=== PATIENT | female | born 1945 | race Caucasian/White ===

== ENCOUNTER 2016-09-21 06:25 | Inpatient (IN) | payer MEDICARE, BC ==
[~2016-09-21 06:25] MED LIST: Lidocaine 1%/Sod Bicarbonate in NS 8.4% 1 ML Syringe IV PRN; Sodium Chloride 0.9% 10 ML Syringe FLUSH PRN
[2016-09-21] MEDS: Lactated Ringers 1,000 ML IV SCH ×2 (07:50→11:58)
--- NOTE | 2016-09-21 08:12 | PCM.PREANE ---
Preanesthetic Assessment - Anesthesia/Transfusion/Family Hx Anesthesia History: Prior Anesthesia Reaction Family History of Anesthesia Reaction: No Transfusion History: No Prior Transfusion(s) - Review of Systems General: No Symptoms Pulmonary: No Symptoms Cardiovascular: No Symptoms Gastrointestinal: No symptoms Neurological: Numbness (toes) Other: Reports: Easy Bruising - Physical Assessment NPO Status Date: 09/20/16 NPO Status Time: 18:30 Pulse: 84 O2 Sat by Pulse Oximetry: 96 Respiratory Rate: 16 Blood Pressure: 135/77 Temperature: 2.6 C Vital Signs: Last Vital Signs Temp 36.7 C 09/21/16 07:10 Pulse 84 09/21/16 07:10 Resp 16 09/21/16 07:10 BP 135/77 09/21/16 07:10 Pulse Ox 96 09/21/16 07:10 Height: 1.6 m Weight: 59.874 kg ASA Class: 3 Mental Status: Alert & Oriented x3 Airway Class: Mallampati = 1 Dentition: Reports: Normal Dentition, [place](s) Thyro-Mental Finger Breadths: 3 Mouth Opening Finger Breadths: 2 ROM/Head Extension: Full Lungs: Clear to auscultation, Normal respiratory effort Cardiovascular: Regular Rate, Regular Rhythm, No Murmurs - Lab Values: Laboratory Last Values MRSA (PCR) Negative 09/04/16 11:19 - Allergies Allergies/Adverse Reactions: Allergies Allergy/AdvReac Type Severity Reaction Status Date / Time guaifenesin AdvReac Nausea Verified 09/21/16 07:19 metronidazole [From Flagyl] AdvReac Nausea Verified 09/21/16 07:19 pseudoephedrine AdvReac Nausea Verified 09/21/16 07:19 [From Sudafed] - Blood Blood Available: Yes Product(s) Available: PRBC - Anesthesia Plan Pre-Op Medication Ordered: Beta Anthony Beta Anthony: Metoprolol Med Last Dose Date: 09/20/16 Med Last Dose Time: 16:30 - Acknowledgements Anesthesia Type Planned: Spinal Pt an Appropriate Candidate for the Planned Anesthesia: Yes Alternatives and Risks of Anesthesia Discussed w Pt/Guardian: Yes Pt/Guardian Understands and Agrees with Anesthesia Plan: Yes PreAnesthesia Questionnaire HEENT History: Reports: Allergic Rhinitis, Cataract, Impaired Vision, Sinusitis Other HEENT History: hypertrophy of nasal turbinates, acute abcess of maxillary sinus Cardiovascular History: Reports: High Cholesterol, Hypertension Respiratory History: Reports: Other (See Below) Other Respiratory History: cough Gastrointestinal History: Reports: GERD, Other (See Below) Other Gastrointestinal History: malignant neoplasm of colon Genitourinary History: Reports: None 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: Musculoskeletal History: Reports: Back Pain, Chronic, Osteoarthritis, Other ( See Below) Other Musculoskeletal History: osteopenia, L hip and shoulder pain Neurological History: Reports: CVA Psychiatric History: Reports: None Endocrine/Metabolic History: Reports: None Hematologic History: Reports: None Immunologic History: Reports: None Oncologic (Cancer) History: Reports: None Dermatologic History: Reports: Seborrheic Dermatitis - Past Surgical History Head Surgeries/Procedures: Reports: None HEENT Surgical History: Reports: Cataract Surgery GI Surgical History: Reports: Colonoscopy Female Surgical History: Reports: None Male Surgical History: Reports: None Endocrine Surgical History: Reports: None Oncologic Surgical History: Reports: None Dermatological Surgical History: Reports: None - SUBSTANCE USE Smoking Status *Q: Never Smoker Second Hand Smoke Exposure: No Recreational Drug Use History: No - HOME MEDS Home Medications: Home Meds Acetaminophen [Tylenol] 325 mg PO Q6H 09/18/16 [History] Beta-Carotene(A) w/C & E/Min [Prosight] 1 tab PO DAILY 09/18/16 [History] Brimonidine Tartrate [Alphagan P 0.1% Ophth Soln] 1 drop EYEBOTH BID 09/18/16 [ History] Calcium Carbonate/Vitamin D3 [Os-Darnell 500+D] 1 tab PO BID 09/18/16 [History] Cholecalciferol (Vitamin D3) [Vitamin D3] 1,000 unit PO DAILY 09/18/16 [History] Fish Oil/[place]-3 Fatty Acids [Fish Oil 1,000 MG] 1,000 mg PO DAILY 09/18/16 [ History] Glucosamine [Glucosamine Sulfate] 500 mg PO DAILY 09/18/16 [History] L.acidoph,Paracasei, B.lactis [Probiotic] 1 tab PO DAILY 09/18/16 [History] Latanoprost [Latanoprost] 1 drop EYEBOTH BEDTIME 09/18/16 [History] Meloxicam [Meloxicam] 15 mg PO DAILY 09/18/16 [History] Metoprolol Succinate [Toprol XL] 25 mg PO DAILY 09/18/16 [History] Mometasone Furoate [Elocon] 1 applic TOP DAILY PRN 09/18/16 [History] amLODIPine [Norvasc] 5 mg PO DAILY 09/18/16 [History] - CURRENT (IN HOUSE) MEDS Current Meds: Current Medications Aspirin (Ecotrin) 325 mg PO BID [facility] Bisacodyl (Dulcolax) 5 mg PO DAILY PRN PRN Reason: Constipation Morphine Sulfate 8 mg/Epinephrine HCl 0.3 mg/Cefuroxime Sodium 750 mg/Ketorolac Tromethamine 30 mg/Sodium Chloride 27.9 ml 0 mg .XX ONETIME ONE Stop: 09/21/16 09:01 Docusate Sodium (Colace) 100 mg PO BID [facility] Famotidine (Pepcid) 20 mg PO BID [facility] Lactated Ringer's (Ringers, Lactated) 1,000 mls @ 125 mls/hr IV ASDIRECTED [place] Stop: 09/21/16 23:00 Cefazolin Sodium/Dextrose 2 gm (/ Premix) 50 mls @ 100 mls/hr IV Q8H [facility] Stop: 09/22/16 09:29 Lidocaine/Sodium Bicarbonate (Buffered Lidocaine 1% In Ns 8.4%) 0.25 ml IV ONETIME PRN PRN Reason: Prior to IV Start Stop: 09/21/16 12:00 Magnesium Hydroxide (Milk Of Magnesia) 30 ml PO BID PRN PRN Reason: Constipation Morphine Sulfate (Morphine) 2 mg IVPUSH Q2H PRN PRN Reason: Breakthrough Pain Multivitamins (Thera) 1 each PO WITHBREAKFAST [facility] Naloxone HCl (Narcan) 0.1 mg IVPUSH Q5M PRN PRN Reason: Oversedation Stop: 09/21/16 11:16 Ondansetron HCl (Zofran) 4 mg IVPUSH Q6H PRN PRN Reason: Nausea/Vomiting Oxycodone/Acetaminophen (Percocet 325-5 Mg) 1 - 2 tab PO Q4H PRN PRN Reason: Pain Senna (Senna) 8.6 mg PO BID PRN PRN Reason: Constipation Sodium Chloride (Saline Flush) 10 ml FLUSH ASDIRECTED PRN PRN Reason: Keep Vein Open Stop: 09/21/16 12:00
[2016-09-21] MEDS ORDERED: Lidocaine 1% 4 ML ONE (08:36)
[2016-09-21] MEDS ORDERED: ceFAZolin 1 GM Vial ONE (08:36)
[2016-09-21] MEDS ORDERED: fentaNYL 100 MCG/2 ML SDV ONE (08:36)
[2016-09-21] MEDS ORDERED: Propofol 200 MG/20 ML SDV ONE ×4 (08:36→10:52)
[2016-09-21] MEDS ORDERED: Morphine PF 10 MG/10 ML SDV ONE (08:41)
[2016-09-21] MEDS: ceFAZolin 1 GM Vial ONE ×2 (09:48→10:35)
[2016-09-21] MEDS: Bupivacaine 0.25% 30 ML SDV ONE ×2 (09:48→10:40)
[2016-09-21] MEDS: Morphine 8 MG, EPINEPHrine 0.3 MG, Cefuroxime 750 MG, Ketorolac 30 MG, Sodium Chloride ... ONE ×10 (09:49→10:39)
[2016-09-21] MEDS: Iodine/Sodium Iodide 2% Tincture 30 ML Bottle ONE ×2 (09:49→10:33)
[2016-09-21] MEDS ORDERED: ePHEDrine/Normal Saline 25 MG/5 ML Syringe ONE (09:58)
[2016-09-21] MEDS ORDERED: Sennosides 8.6 MG Tab PO PRN (11:00)
[2016-09-21] MEDS ORDERED: Naloxone 0.4 MG/ML SDV IVPUSH PRN (11:00)
[2016-09-21] MEDS ORDERED: Bisacodyl 5 MG Tab PO PRN (11:00)
[2016-09-21] MEDS ORDERED: Morphine 2 MG/ML Syringe IVPUSH PRN (11:00)
[2016-09-21] MEDS ORDERED: Magnesium Hydroxide 400 MG/5 ML Susp 30 ML Cup PO PRN (11:00)
[2016-09-21] MEDS ORDERED: diphenhydrAMINE 50 MG/ML SDV IVPUSH PRN (11:18)
[2016-09-21] MEDS ORDERED: fentaNYL 100 MCG/2 ML SDV IVPUSH PRN (11:18)
--- NOTE | 2016-09-21 11:20 | PCM.POSTAN ---
POST ANESTHESIA ASSESSMENT - MENTAL STATUS Mental Status: alert, oriented - VITAL SIGNS Pulse Rate: 82 SaO2: 99 Resp Rate: 15 Blood Pressure: 99/64 Temperature: 36.1 C - RESPIRATORY Respiratory Status: respiratory rate WNL, airway patent, O2 saturation stable - CARDIOVASCULAR CV Status: pulse rate WNL, blood pressure stable - GASTROINTESTINAL GI Status: no symptoms - PAIN Pain Score: 0 - POST OP HYDRATION Hydration Status: adequate & stable - OBSERVATIONS Free Text/Narrative:: no anesthesia complications noted
--- NOTE | 2016-09-21 12:35 | CR ---
Pelvis and left hip: AP view of the pelvis was obtained as well as lateral view of the left hip. Recently placed left hip prosthesis is seen. Components are aligned. Soft tissue air is noted from the surgical procedure. Moderate joint space narrowing is seen within the right hip. Bony structures are osteopenic. Impression: 1. Satisfactory appearance of recently placed left hip prosthesis. 2. Other incidental notes. Diagnostic code #2
--- NOTE | 2016-09-21 12:36 | PCM.CONS ---
H&P History of Present Illness - General Date of Service: 09/21/16 Admit Problem/Dx: Admission Diagnosis/Problem Admission Diagnosis/Problem Osteoarthritis of hip Source of Information: Patient, Other (OR and anesthesia records) History Limitations: Reports: No Limitations - History of Present Illness Initial Comments - Free Text/Narative: Ihsan is a pleasant 71yo female s/p Lt FREDRICK with Dr. Brooks this morning. Doing well thus far, pain under control thus far, spinal still in effect. She is quite nauseous now. Nursing has just given her zofran IVP. PMH significant for HTN, HLD, OA, Osteopenia, allertic rhinitis/sinusitis, GERD , Hx colon Ca, Hx CVA. Hospitalist service is consulted for postoperative medical management. She is Full Code status. Left Hip Pain Score (Numeric/FACES): 7 - Related Data Allergies/Adverse Reactions: Allergies Allergy/AdvReac Type Severity Reaction Status Date / Time guaifenesin AdvReac Nausea Verified 09/21/16 07:19 metronidazole [From Flagyl] AdvReac Nausea Verified 09/21/16 07:19 pseudoephedrine AdvReac Nausea Verified 09/21/16 07:19 [From Sudafed] Home Medications: Home Meds Acetaminophen [Tylenol] 325 mg PO Q6H PRN 09/18/16 [History] Beta-Carotene(A) w/C & E/Min [Prosight] 1 tab PO DAILY 09/18/16 [History] Brimonidine Tartrate [Alphagan P 0.1% Ophth Soln] 1 drop EYEBOTH BID 09/18/16 [ History] Calcium Carbonate/Vitamin D3 [Os-Darnell 500+D] 1 tab PO BID 09/18/16 [History] Cholecalciferol (Vitamin D3) [Vitamin D3] 1,000 unit PO DAILY 09/18/16 [History] Fish Oil/[place]-3 Fatty Acids [Fish Oil 1,000 MG] 1,000 mg PO DAILY 09/18/16 [ History] Glucosamine [Glucosamine Sulfate] 500 mg PO DAILY 09/18/16 [History] L.acidoph,Paracasei, B.lactis [Probiotic] 1 tab PO DAILY 09/18/16 [History] Latanoprost [Latanoprost] 1 drop EYEBOTH BEDTIME 09/18/16 [History] Meloxicam [Meloxicam] 15 mg PO DAILY 09/18/16 [History] Metoprolol Succinate [Toprol XL] 25 mg PO DAILY 09/18/16 [History] Mometasone Furoate [Elocon] 1 applic TOP DAILY PRN 09/18/16 [History] amLODIPine [Norvasc] 5 mg PO DAILY 09/18/16 [History] Past Medical History HEENT History: Reports: Allergic Rhinitis, Cataract, Impaired Vision, Sinusitis Other HEENT History: hypertrophy of nasal turbinates, acute abcess of maxillary sinus Cardiovascular History: Reports: High Cholesterol, Hypertension Respiratory History: Reports: Other (See Below) Other Respiratory History: cough Gastrointestinal History: Reports: GERD, Other (See Below) Other Gastrointestinal History: malignant neoplasm of colon Genitourinary History: Reports: 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: Musculoskeletal History: Reports: Back Pain, Chronic, Osteoarthritis, Other ( See Below) Other Musculoskeletal History: osteopenia, L hip and shoulder pain Neurological History: Reports: CVA Psychiatric History: Reports: None Endocrine/Metabolic History: Reports: None Hematologic History: Reports: None Immunologic History: Reports: None Oncologic (Cancer) History: Reports: None Dermatologic History: Reports: Seborrheic Dermatitis - Infectious Disease History Infectious Disease History: Reports: None - Past Surgical History Head Surgeries/Procedures: Reports: None HEENT Surgical History: Reports: Cataract Surgery GI Surgical History: Reports: Colonoscopy Female Surgical History: Reports: None Male Surgical History: Reports: None Endocrine Surgical History: Reports: None Oncologic Surgical History: Reports: None Dermatological Surgical History: Reports: None Social & Family History - Tobacco Use Smoking Status *Q: Never Smoker Second Hand Smoke Exposure: No - Caffeine Use Caffeine Use: Reports: Coffee - Recreational Drug Use Recreational Drug Use: No H&P Review of Systems - Review of Systems: Review Of Systems: See Below General: Reports: No Symptoms HEENT: Reports: No Symptoms Pulmonary: Reports: No Symptoms. Denies: Shortness of Breath, Pleuritic Chest Pain, Cough Cardiovascular: Reports: No Symptoms. Denies: Chest Pain, Palpitations Gastrointestinal: Reports: No Symptoms Genitourinary: Reports: No Symptoms, Other (grijalva cath) Musculoskeletal: Reports: Leg Pain (minimal at this time) Psychiatric: Reports: No Symptoms Neurological: Reports: No Symptoms Exam - Exam Exam: See Below - Vital Signs Vital Signs: Last Vital Signs Temp 97.3 F 09/21/16 12:00 Pulse 65 09/21/16 12:00 Resp 13 09/21/16 12:00 BP 109/63 09/21/16 12:00 Pulse Ox 98 09/21/16 12:00 Weight: 132 lb - Exam Quality Assessment: Supplemental Oxygen, Urinary Catheter General: Alert, Oriented, Cooperative HEENT: Conjunctiva Clear, EACs Clear, EOMI, Mucosa Moist & [place], Pupils Equal, Pupils Reactive Neck: Supple, Trachea Midline Lungs: Clear to Auscultation, Normal Respiratory Effort, Decreased Breath Sounds (bases) Cardiovascular: Regular Rate, Regular Rhythm Abdomen: Normal Bowel Sounds, Soft (Female) Exam: Deferred Rectal (Female) Exam: Deferred Back Exam: Normal Inspection Extremities: Other (lt hip dressing CDI; hip abductor pillow in place) Peripheral Pulses: 2+: Dorsalis Pedis (L), Dorsalis Pedis (R) Skin: Warm, Dry, Intact Neurological: Cranial Nerves Intact Neuro Extensive - Mental Status: Alert, Oriented x3, Normal Mood/Affect, Normal Cognition, Memory Intact Neuro Extensive - Motor, Sensory, Reflexes: CN II-XII Intact Psychiatric: Alert, Normal Affect, Normal Mood - Patient Data Lab Results Last 24 hrs: Laboratory Results - last 24 hr 09/21/16 Range/Units 07:32 Blood Type B POSITIVE Gel Antibody Screen Negative Consult PN Assessment/Plan POD#: 0 Procedures: Procedures DXA BONE DENSITY AXIAL (07/23/16) (1) S/P total hip arthroplasty SNOMED Code(s): 531363016724, 391604008064 Code(s): Z96.649 - PRESENCE OF UNSPECIFIED ARTIFICIAL HIP JOINT Priority: High Current Visit: Yes Qualifiers: Laterality: left Qualified Code(s): Z96.642 - Presence of left artificial hip joint (2) Osteoarthritis SNOMED Code(s): 828602896 Code(s): M19.90 - UNSPECIFIED OSTEOARTHRITIS, UNSPECIFIED SITE Priority: High Current Visit: Yes Qualifiers: Osteoarthritis location: hip Osteoarthritis type: primary Laterality: left Qualified Code(s): M16.12 - Unilateral primary osteoarthritis, left hip (3) HTN (hypertension) SNOMED Code(s): 69280108 Code(s): I10 - ESSENTIAL (PRIMARY) HYPERTENSION Priority: High Current Visit: No Qualifiers: Hypertension type: essential hypertension Qualified Code(s): I10 - Essential (primary) hypertension (4) HLD (hyperlipidemia) SNOMED Code(s): 27824394 Code(s): E78.5 - HYPERLIPIDEMIA, UNSPECIFIED Priority: High Current Visit : No Qualifiers: Hyperlipidemia type: unspecified Qualified Code(s): E78.5 - Hyperlipidemia , unspecified (5) GERD (gastroesophageal reflux disease) SNOMED Code(s): 787711132 Code(s): K21.9 - GASTRO-ESOPHAGEAL REFLUX DISEASE WITHOUT ESOPHAGITIS Priority: High Current Visit: No Qualifiers: Esophagitis presence: esophagitis presence not specified Qualified Code(s) : K21.9 - Gastro-esophageal reflux disease without esophagitis (6) Osteopenia SNOMED Code(s): 036703865 Code(s): M85.80 - OT DISRD OF BONE DENSITY AND STRUCTURE, UNSPECIFIED SITE Priority: Medium Current Visit: No Qualifiers: Laterality: unspecified laterality (7) Allergic rhinitis SNOMED Code(s): 80161422 Code(s): J30.9 - ALLERGIC RHINITIS, UNSPECIFIED Priority: Medium Current Visit: No Qualifiers: Chronicity: unspecified Allergic rhinitis trigger: unspecified Allergic rhinitis seasonality: unspecified seasonality Qualified Code(s): J30.9 - Allergic rhinitis, unspecified (8) History of colon cancer SNOMED Code(s): 467062967 Code(s): Z85.038 - PERSONAL HISTORY OF MALIGNANT NEOPLASM OF LARGE INTESTINE Priority: Medium Current Visit: No (9) History of CVA (cerebrovascular accident) SNOMED Code(s): 458139008 Code(s): Z86.73 - PRSNL HX OF TIA (TIA), AND CEREB INFRC W/O RESID DEFICITS Priority: Medium Current Visit: No Problem List Initiated/Reviewed/Updated: Yes My Orders last 24 hours: My Active Orders 09/21/16 21:00 Brimonidine Tartrate 1 drop EYEBOTH BID Calcium Carbonate/Vitamin D3 1 tab PO BID Latanoprost [Xalatan 0.005% Ophth Soln] DOSE ml EYEBOTH BEDTIME 09/22/16 09:00 Cholecalciferol (Vitamin D3) [Vitamin D3] 1,000 units PO DAILY Fish Oil/[place]-3 Fatty Acids [Fish Oil] 1 gm PO DAILY Glucosamine 500 mg PO DAILY L.acidoph,Paracasei, B.lactis [Probiotic] 1 tab PO DAILY Metoprolol Succinate [Toprol XL] 25 mg PO DAILY amLODIPine [Norvasc] 5 mg PO DAILY Plan: I/P: S/P Rt FREDRICK POD #[address] Brooks -Pain management and DVT prophylax per primary team/Ortho -RT/IS -PT/OT -CM/SW for assist with DC planning -Follow am labs/hgb Postoperative nausea -Zofran PRN as ordered -Will add scopolamine patch -Cont IVF until nausea resolves and able to tolerate PO fluids Chronic: -HTN- continue home medications -HLD -Osteopenia- cont calcium and vit D -GERD- pepcid bid -Hx allergic rhinitis/sinusitis -Hx CVA -Hx Colon CA Other: GI prophylax Patient is Full Code Status Requesting Provider: Dr. Brooks Date Consult Requested: 09/21/16 Reason for Consult: Postoperative medical management Patient History Reviewed: Yes
[2016-09-21] MEDS: Ondansetron 4 MG/2 ML SDV IVPUSH PRN ×2 (12:41→18:19)
[2016-09-21] MEDS ORDERED: Scopolamine 1.5 MG Transdermal Patch TRDERM PRN ×2 (12:51→13:00)
[2016-09-21] MEDS ORDERED: diphenhydrAMINE 50 MG/ML SDV IVPUSH ONE (13:35)
[2016-09-21] MEDS: ceFAZolin 2 GM in Premix Bag 1 BAG IV SCH (16:14)
[2016-09-21] MEDS: amLODIPine 5 MG Tab PO SCH (18:18)
[2016-09-21] MEDS ORDERED: Latanoprost 0.005% Ophth Soln 2.5 ML Bottle EYEBOTH SCH (21:00)
[2016-09-21] MEDS: Brimonidine 0.2% Ophth Soln 5 ML Bottle EYEBOTH SCH (21:26)
[2016-09-21] MEDS: Docusate Sodium 100 MG Cap PO SCH (21:27)
[2016-09-21] MEDS: Calcium Carbonate/Vitamin D3 1500 MG-200 Units Tab PO SCH (21:27)
[2016-09-21] MEDS: Acetaminophen/oxyCODONE 325-5 MG Tab PO PRN (21:27)
[2016-09-21] MEDS: Famotidine 20 MG Tab PO SCH (21:27)
[2016-09-22] MEDS: ceFAZolin 2 GM in Premix Bag 1 BAG IV SCH ×2 (00:09→08:58)
[2016-09-22] MEDS: Acetaminophen/oxyCODONE 325-5 MG Tab PO PRN ×3 (05:12→15:48)
[2016-09-22] MEDS: Multivitamins,Therapeutic Tab PO SCH ×2 (05:12→06:52)
--- NOTE | 2016-09-22 07:59 | PCM.CONSN ---
- General Info Date of Service: 09/22/16 Admission Dx/Problem (Free Text): Admission Diagnosis/Problem Admission Diagnosis/Problem Osteoarthritis of hip Subjective Update: Follow Up Functional Status: Reports: pain controlled, tolerating diet, urinating. Denies : new symptoms - Review of Systems General: Denies: Fever, Weakness, Fatigue, Malaise, Chills HEENT: Reports: no symptoms Pulmonary: Denies: shortness of breath Cardiovascular: Denies: Chest Pain, Palpitations, Dyspnea on Exertion Gastrointestinal: Denies: Abdominal pain, Difficulty swallowing, Nausea, Vomiting Genitourinary: Reports: no symptoms Musculoskeletal: Reports: no symptoms Skin: Denies: cyanosis, bruising, pruritis, rash Neurological: Reports: Difficulty Walking, Gait Disturbance. Denies: Confusion , Pre-Existing Deficit, Weakness Psychiatric: Denies: depression, anxiety, agitation, hallucinations Systems Review Comment:: No acute issues. She feels better. She has no new complaints. Her K is slightly low at 3.3. Her Vitals are fairly stable. - Patient Data Vitals - most recent: Last Vital Signs Temp 36.6 C 09/21/16 19:58 Pulse 72 09/22/16 05:10 Resp 16 09/22/16 00:48 BP 111/51 L 09/22/16 05:10 Pulse Ox 97 09/22/16 05:10 Weight - most recent: 59.92 kg I&O - last 24 hours: Intake & Output 09/21/16 09/22/16 09/22/16 22:59 06:59 14:59 Intake Total 1380 850 Output Total 650 900 Balance 730 -50 Lab Results last 24 hrs: Laboratory Results - last 24 hr 09/21/16 09/22/16 09/22/16 Range/Units 07:32 05:53 05:53 WBC 7.23 (3.98-10.04) K/mm3 RBC 3.59 L (3.98-5.22) M/mm3 Hgb 11.3 (11.2-15.7) gm/L Hct 34.3 (34.1-44.9) % MCV 95.5 H (79.4-94.8) fl MCH 31.5 (25.6-32.2) pg MCHC 32.9 (32.2-35.5) g/dl RDW Std Deviation 43.2 (36.4-46.3) fL Plt Count 238 (182-369) K/mm3 MPV 8.7 L (9.4-12.3) fl Neut % (Auto) 55.7 (34.0-71.1) % Lymph % (Auto) 32.1 (19.3-51.7) % [place] % (Auto) 10.5 (4.7-12.5) % Eos % (Auto) 1.2 (0.7-5.8) Baso % (Auto) 0.4 (0.1-1.2) % Neut # (Auto) 4.02 (1.56-6.13) K/mm3 Lymph # (Auto) 2.32 (1.18-3.74) K/mm3 [place] # (Auto) 0.76 H (0.24-0.36) K/mm3 Eos # (Auto) 0.09 (0.04-0.36) K/mm3 Baso # (Auto) 0.03 (0.01-0.08) K/mm3 Sodium 137 (136-145) mEq/L Potassium 3.3 L (3.5-5.1) mEq/L Chloride 102 (98-107) mEq/L Carbon Dioxide 29 (21-32) mEq/L Anion Gap 9.3 (5-15) BUN 11 (7-18) mg/dL Creatinine 1.0 (0.55-1.02) mg/dL Est Cr Clr Drug Dosing 42.68 mL/min Estimated GFR (MDRD) 55 (>60) mL/min BUN/Creatinine Ratio 11.0 L (14-18) Glucose 108 (83-115) mg/dL Calcium 8.8 (8.5-10.1) mg/dL Total Bilirubin 0.6 (0.2-1.0) mg/dL AST 18 (15-37) U/L ALT 23 (14-59) U/L Alkaline Phosphatase 54 (46-116) U/L Total Protein 5.5 L (6.4-8.2) g/dl Albumin 2.9 L (3.4-5.0) g/dl Globulin 2.6 gm/dL Albumin/Globulin Ratio 1.1 (1-2) Blood Type B POSITIVE Gel Antibody Screen Negative Med Orders - Current: Current Medications Amlodipine Besylate (Norvasc) 5 mg PO DAILY@1700 [facility] Last Admin: 09/21/16 18:18 Dose: 5 mg Aspirin (Ecotrin) 325 mg PO BID [facility] Bisacodyl (Dulcolax) 5 mg PO DAILY PRN PRN Reason: Constipation Brimonidine Tartrate (Alphagan 0.2% Ophth Soln) 0 ml EYEBOTH BID [facility] Last Admin: 09/21/16 21:26 Dose: 1 drop Calcium Carbonate (Calcium Carbonate/Vitamin D 1500 Mg-200 Unit) 1 tab PO BID [facility] Last Admin: 09/21/16 21:27 Dose: 1 tab Cholecalciferol (Vitamin D3) 1,000 units PO DAILY [facility] Docusate Sodium (Colace) 100 mg PO BID [facility] Last Admin: 09/21/16 21:27 Dose: 100 mg Famotidine (Pepcid) 20 mg PO BID [facility] Last Admin: 09/21/16 21:27 Dose: 20 mg Fish Oil (Fish Oil) 1 gm PO DAILY [facility] Cefazolin Sodium/Dextrose 2 gm (/ Premix) 50 mls @ 100 mls/hr IV Q8H [facility] Stop: 09/22/16 09:29 Last Admin: 09/22/16 00:09 Dose: 100 mls/hr Latanoprost (Xalatan 0.005% Ophth Soln) 0 ml EYEBOTH BEDTIME [facility] Last Admin: 09/21/16 21:27 Dose: 1 drop Magnesium Hydroxide (Milk Of Magnesia) 30 ml PO BID PRN PRN Reason: Constipation Metoprolol Succinate (Toprol Xl) 25 mg PO DAILY@1700 [facility] Miscellaneous Information (Remove Patch) 0 ea TRDERM Q72H [facility] Morphine Sulfate (Morphine) 2 mg IVPUSH Q2H PRN PRN Reason: Breakthrough Pain Multivitamins (Thera) 1 each PO WITHBREAKFAST [facility] Last Admin: 09/22/16 06:52 Dose: Not Given Ondansetron HCl (Zofran) 4 mg IVPUSH Q6H PRN PRN Reason: Nausea/Vomiting Last Admin: 09/21/16 18:19 Dose: 4 mg Oxycodone/Acetaminophen (Percocet 325-5 Mg) 1 - 2 tab PO Q4H PRN PRN Reason: Pain Last Admin: 09/22/16 05:12 Dose: 2 tab Glucosamine 500 Mg 0 each PO DAILY [facility] Saccharomyces Boulardii (Florastor) 250 mg PO DAILY [facility] Scopolamine (Transderm-Scop) 1.5 mg TRDERM Q72H PRN PRN Reason: Nausea Last Admin: 09/21/16 12:57 Dose: 1.5 mg Senna (Senna) 8.6 mg PO BID PRN PRN Reason: Constipation Discontinued Medications Amlodipine Besylate (Norvasc) 5 mg PO DAILY [facility] Bupivacaine HCl (Marcaine 0.25%) Confirm Administered Dose 30 ml .ROUTE .STK- MED ONE Stop: 09/21/16 07:55 Last Admin: 09/21/16 10:40 Dose: 30 ml Cefazolin Sodium (Ancef) Confirm Administered Dose 2 gm .ROUTE .STK-MED ONE Stop: 09/21/16 07:55 Last Admin: 09/21/16 10:35 Dose: 2 gm Cefazolin Sodium (Ancef) Confirm Administered Dose 2 gm .ROUTE .STK-MED ONE Stop: 09/21/16 08:37 Morphine Sulfate 8 mg/Epinephrine HCl 0.3 mg/Cefuroxime Sodium 750 mg/Ketorolac Tromethamine 30 mg/Sodium Chloride 27.9 ml 0 mg .XX ONETIME ONE Stop: 09/21/16 09:01 Last Admin: 09/21/16 10:39 Dose: 788.3 mg Diphenhydramine HCl (Benadryl) 25 mg IVPUSH Q6H PRN PRN Reason: Itching Stop: 09/21/16 18:00 Diphenhydramine HCl (Benadryl) 50 mg IVPUSH ONETIME ONE Stop: 09/21/16 13:36 Last Admin: 09/21/16 13:41 Dose: 50 mg Ephedrine Sulfate (Ephedrine In Ns) Confirm Administered Dose 25 mg .ROUTE .STK- MED ONE Stop: 09/21/16 09:59 Fentanyl (Sublimaze) Confirm Administered Dose 100 mcg .ROUTE .STK-MED ONE Stop: 09/21/16 08:37 Fentanyl (Sublimaze) 50 mcg IVPUSH Q5M PRN PRN Reason: PAIN Stop: 09/21/16 18:00 Lactated Ringer's (Ringers, Lactated) 1,000 mls @ 125 mls/hr IV ASDIRECTED [facility] Stop: 09/21/16 23:00 Last Admin: 09/21/16 11:58 Dose: 125 mls/hr Lidocaine HCl (Xylocaine-Mpf 1%) Confirm Administered Dose 4 mls @ as directed .ROUTE .STK-MED ONE Stop: 09/21/16 08:37 Iodine (Iodine 2% Mild Tincture) Confirm Administered Dose 30 ml .ROUTE .STK- MED ONE Stop: 09/21/16 07:55 Last Admin: 09/21/16 10:33 Dose: 30 ml Lidocaine/Sodium Bicarbonate (Buffered Lidocaine 1% In Ns 8.4%) 0.25 ml IV ONETIME PRN PRN Reason: Prior to IV Start Stop: 09/21/16 12:00 Last Admin: 09/21/16 07:49 Dose: 0.25 ml Metoprolol Succinate (Toprol Xl) 25 mg PO DAILY [facility] Morphine Sulfate (Duramorph Pf) Confirm Administered Dose 10 mg .ROUTE .STK-MED ONE Stop: 09/21/16 08:42 Naloxone HCl (Narcan) 0.1 mg IVPUSH Q5M PRN PRN Reason: Oversedation Stop: 09/21/16 11:16 Propofol (Diprivan 20 Ml) Confirm Administered Dose 200 mg .ROUTE .STK-MED ONE Stop: 09/21/16 08:37 Propofol (Diprivan 20 Ml) Confirm Administered Dose 200 mg .ROUTE .STK-MED ONE Stop: 09/21/16 09:34 Propofol (Diprivan 20 Ml) Confirm Administered Dose 200 mg .ROUTE .STK-MED ONE Stop: 09/21/16 10:13 Propofol (Diprivan 20 Ml) Confirm Administered Dose 200 mg .ROUTE .STK-MED ONE Stop: 09/21/16 10:53 Scopolamine (Transderm-Scop) 1.5 mg TRDERM Q72H PRN PRN Reason: Nausea/Vomiting Sodium Chloride (Saline Flush) 10 ml FLUSH ASDIRECTED PRN PRN Reason: Keep Vein Open Stop: 09/21/16 12:00 Tranexamic Acid (Cyklokapron) Confirm Administered Dose 1,000 mg .ROUTE .STK- MED ONE Stop: 09/21/16 07:55 Last Admin: 09/21/16 10:42 Dose: 1,000 mg - Exam Quality Assessment: No: supplemental oxygen General: alert, oriented, cooperative, no acute distress HEENT: Pupils equal, Pupils reactive, EOMI, Mucous membr. moist/pink Neck: supple, trachea midline, no JVD, no thyromegaly Lungs: Clear to auscultation, Normal respiratory effort Cardiovascular: Regular Rate, Regular Rhythm GI/Abdominal Exam: Normal Bowel Sounds, Soft, Non-Tender, No Organomegaly, No Distention, No Mass (Female) Exam: Deferred Back Exam: Normal Inspection, Decreased Range of Motion Extremities: Normal Inspection, Normal Range of Motion, Non-Tender, No Pedal Edema Peripheral Pulses: 2+: Dorsalis Pedis (L), Dorsalis Pedis (R) Skin: warm, dry, intact Wound/Incisions: healing well, dressing dry and intact, no drainage Neurological: no new focal deficit. No: normal gait Psy/Mental Status: alert, normal affect, normal mood Consult PN Assessment/Plan POD#: 1 Procedures: Procedures DXA BONE DENSITY AXIAL (07/23/16) Problem List Initiated/Reviewed/Updated: Yes Plan: I/P: S/P Rt FREDRICK POD #[address] Brooks - Pain management and DVT prophylax per primary team/Ortho - RT/IS - PT/OT - CM/SW for assist with DC planning - Follow am labs/hgb Resolved: Postoperative nausea - Zofran PRN as ordered - Will add scopolamine patch - Cont IVF until nausea resolves and able to tolerate PO fluids Chronic: HTN- continue home medications HLD Osteopenia- cont calcium and vit D GERD- pepcid bid Hx allergic rhinitis/sinusitis Hx CVA Hx Colon CA Other: GI prophylax Patient is Full Code Status From the Hospitalist standpoint, patient is doing relatively well. We have no further recommendations but to continue current treatment. We are signing off her care. Please feel free to re-consult us for any questions or concerns. Again , thank you for allowing us to participate in the management of this patient.
[2016-09-22] MEDS: Docusate Sodium 100 MG Cap PO SCH (08:55)
[2016-09-22] MEDS: Famotidine 20 MG Tab PO SCH (08:56)
[2016-09-22] MEDS: Calcium Carbonate/Vitamin D3 1500 MG-200 Units Tab PO SCH (08:57)
[2016-09-22] MEDS ORDERED: Cholecalciferol (Vitamin D3) 1,000 Unit Tab PO SCH (09:00)
[2016-09-22] MEDS ORDERED: amLODIPine 5 MG Tab PO SCH (09:00)
[2016-09-22] MEDS ORDERED: Aspirin 325 MG Tab.EC PO SCH (09:00)
[2016-09-22] MEDS ORDERED: Saccharomyces Boulardii (Probiotic) 250 MG Cap PO SCH (09:00)
[2016-09-22] MEDS ORDERED: Fish Oil/Omega-3 Fatty Acids 1 Gm Cap PO SCH (09:00)
[2016-09-22] MEDS ORDERED: GLUCOSAMINE 500 MG PO SCH (09:00)
[2016-09-22] MEDS ORDERED: Metoprolol Succinate 25 MG Tab.ER PO SCH ×2 (09:00→17:00)
[2016-09-22] MEDS: Brimonidine 0.2% Ophth Soln 5 ML Bottle EYEBOTH SCH (09:04)
--- NOTE | 2016-09-22 13:17 | PCM.SURGPN ---
- General Info Date of Service: 09/22/16 POD#: 1 Functional Status: Reports: pain controlled, tolerating diet, ambulating, urinating. Denies: new symptoms - Review of Systems Musculoskeletal: Reports: other (The pt met inpatient therapy goals.) - Patient Data Vitals - most recent: Last Vital Signs Temp 98.6 F 09/22/16 12:00 Pulse 98 09/22/16 12:00 Resp 14 09/22/16 12:00 BP 120/70 09/22/16 12:00 Pulse Ox 98 09/22/16 12:00 Weight - most recent: 132 lb 1.6 oz I&O - last 24 hours: Intake & Output 09/21/16 09/22/16 09/22/16 22:59 06:59 14:59 Intake Total 1380 850 350 Output Total 650 900 Balance 730 -50 350 Lab Results last 24 hrs: Laboratory Results - last 24 hr 09/21/16 09/22/16 09/22/16 Range/Units 07:32 05:53 05:53 WBC 7.23 (3.98-10.04) K/mm3 RBC 3.59 L (3.98-5.22) M/mm3 Hgb 11.3 (11.2-15.7) gm/L Hct 34.3 (34.1-44.9) % MCV 95.5 H (79.4-94.8) fl MCH 31.5 (25.6-32.2) pg MCHC 32.9 (32.2-35.5) g/dl RDW Std Deviation 43.2 (36.4-46.3) fL Plt Count 238 (182-369) K/mm3 MPV 8.7 L (9.4-12.3) fl Neut % (Auto) 55.7 (34.0-71.1) % Lymph % (Auto) 32.1 (19.3-51.7) % [place] % (Auto) 10.5 (4.7-12.5) % Eos % (Auto) 1.2 (0.7-5.8) Baso % (Auto) 0.4 (0.1-1.2) % Neut # (Auto) 4.02 (1.56-6.13) K/mm3 Lymph # (Auto) 2.32 (1.18-3.74) K/mm3 [place] # (Auto) 0.76 H (0.24-0.36) K/mm3 Eos # (Auto) 0.09 (0.04-0.36) K/mm3 Baso # (Auto) 0.03 (0.01-0.08) K/mm3 Sodium 137 (136-145) mEq/L Potassium 3.3 L (3.5-5.1) mEq/L Chloride 102 (98-107) mEq/L Carbon Dioxide 29 (21-32) mEq/L Anion Gap 9.3 (5-15) BUN 11 (7-18) mg/dL Creatinine 1.0 (0.55-1.02) mg/dL Est Cr Clr Drug Dosing 42.68 mL/min Estimated GFR (MDRD) 55 (>60) mL/min BUN/Creatinine Ratio 11.0 L (14-18) Glucose 108 (83-115) mg/dL Calcium 8.8 (8.5-10.1) mg/dL Total Bilirubin 0.6 (0.2-1.0) mg/dL AST 18 (15-37) U/L ALT 23 (14-59) U/L Alkaline Phosphatase 54 (46-116) U/L Total Protein 5.5 L (6.4-8.2) g/dl Albumin 2.9 L (3.4-5.0) g/dl Globulin 2.6 gm/dL Albumin/Globulin Ratio 1.1 (1-2) Blood Type B POSITIVE Gel Antibody Screen Negative Med Orders - Current: Current Medications Amlodipine Besylate (Norvasc) 5 mg PO DAILY@1700 [facility] Last Admin: 09/21/16 18:18 Dose: 5 mg Aspirin (Ecotrin) 325 mg PO BID [facility] Last Admin: 09/22/16 08:57 Dose: 325 mg Bisacodyl (Dulcolax) 5 mg PO DAILY PRN PRN Reason: Constipation Brimonidine Tartrate (Alphagan 0.2% Ophth Soln) 0 ml EYEBOTH BID [facility] Last Admin: 09/22/16 09:04 Dose: 1 drop Calcium Carbonate (Calcium Carbonate/Vitamin D 1500 Mg-200 Unit) 1 tab PO BID [facility] Last Admin: 09/22/16 08:57 Dose: 1 tab Cholecalciferol (Vitamin D3) 1,000 units PO DAILY [facility] Last Admin: 09/22/16 09:05 Dose: 1,000 units Docusate Sodium (Colace) 100 mg PO BID [facility] Last Admin: 09/22/16 08:55 Dose: 100 mg Famotidine (Pepcid) 20 mg PO BID [facility] Last Admin: 09/22/16 08:56 Dose: 20 mg Fish Oil (Fish Oil) 1 gm PO DAILY [facility] Last Admin: 09/22/16 08:56 Dose: 1 gm Latanoprost (Xalatan 0.005% Ophth Soln) 0 ml EYEBOTH BEDTIME [facility] Last Admin: 09/21/16 21:27 Dose: 1 drop Magnesium Hydroxide (Milk Of Magnesia) 30 ml PO BID PRN PRN Reason: Constipation Metoprolol Succinate (Toprol Xl) 25 mg PO DAILY@1700 [facility] Miscellaneous Information (Remove Patch) 0 ea TRDERM Q72H [facility] Morphine Sulfate (Morphine) 2 mg IVPUSH Q2H PRN PRN Reason: Breakthrough Pain Multivitamins (Thera) 1 each PO WITHBREAKFAST [facility] Last Admin: 09/22/16 06:52 Dose: Not Given Ondansetron HCl (Zofran) 4 mg IVPUSH Q6H PRN PRN Reason: Nausea/Vomiting Last Admin: 09/21/16 18:19 Dose: 4 mg Oxycodone/Acetaminophen (Percocet 325-5 Mg) 1 - 2 tab PO Q4H PRN PRN Reason: Pain Last Admin: 09/22/16 11:18 Dose: 1 tab Glucosamine 500 Mg 0 each PO DAILY [facility] Last Admin: 09/22/16 09:05 Dose: Not Given Saccharomyces Boulardii (Florastor) 250 mg PO DAILY [facility] Last Admin: 09/22/16 08:55 Dose: 250 mg Scopolamine (Transderm-Scop) 1.5 mg TRDERM Q72H PRN PRN Reason: Nausea Last Admin: 09/21/16 12:57 Dose: 1.5 mg Senna (Senna) 8.6 mg PO BID PRN PRN Reason: Constipation Discontinued Medications Amlodipine Besylate (Norvasc) 5 mg PO DAILY [facility] Bupivacaine HCl (Marcaine 0.25%) Confirm Administered Dose 30 ml .ROUTE .STK- MED ONE Stop: 09/21/16 07:55 Last Admin: 09/21/16 10:40 Dose: 30 ml Cefazolin Sodium (Ancef) Confirm Administered Dose 2 gm .ROUTE .STK-MED ONE Stop: 09/21/16 07:55 Last Admin: 09/21/16 10:35 Dose: 2 gm Cefazolin Sodium (Ancef) Confirm Administered Dose 2 gm .ROUTE .STK-MED ONE Stop: 09/21/16 08:37 Morphine Sulfate 8 mg/Epinephrine HCl 0.3 mg/Cefuroxime Sodium 750 mg/Ketorolac Tromethamine 30 mg/Sodium Chloride 27.9 ml 0 mg .XX ONETIME ONE Stop: 09/21/16 09:01 Last Admin: 09/21/16 10:39 Dose: 788.3 mg Diphenhydramine HCl (Benadryl) 25 mg IVPUSH Q6H PRN PRN Reason: Itching Stop: 09/21/16 18:00 Diphenhydramine HCl (Benadryl) 50 mg IVPUSH ONETIME ONE Stop: 09/21/16 13:36 Last Admin: 09/21/16 13:41 Dose: 50 mg Ephedrine Sulfate (Ephedrine In Ns) Confirm Administered Dose 25 mg .ROUTE .STK- MED ONE Stop: 09/21/16 09:59 Fentanyl (Sublimaze) Confirm Administered Dose 100 mcg .ROUTE .STK-MED ONE Stop: 09/21/16 08:37 Fentanyl (Sublimaze) 50 mcg IVPUSH Q5M PRN PRN Reason: PAIN Stop: 09/21/16 18:00 Lactated Ringer's (Ringers, Lactated) 1,000 mls @ 125 mls/hr IV ASDIRECTED [facility] Stop: 09/21/16 23:00 Last Admin: 09/21/16 11:58 Dose: 125 mls/hr Cefazolin Sodium/Dextrose 2 gm (/ Premix) 50 mls @ 100 mls/hr IV Q8H [facility] Stop: 09/22/16 09:29 Last Admin: 09/22/16 08:58 Dose: 100 mls/hr Lidocaine HCl (Xylocaine-Mpf 1%) Confirm Administered Dose 4 mls @ as directed .ROUTE .STK-MED ONE Stop: 09/21/16 08:37 Iodine (Iodine 2% Mild Tincture) Confirm Administered Dose 30 ml .ROUTE .STK- MED ONE Stop: 09/21/16 07:55 Last Admin: 09/21/16 10:33 Dose: 30 ml Lidocaine/Sodium Bicarbonate (Buffered Lidocaine 1% In Ns 8.4%) 0.25 ml IV ONETIME PRN PRN Reason: Prior to IV Start Stop: 09/21/16 12:00 Last Admin: 09/21/16 07:49 Dose: 0.25 ml Metoprolol Succinate (Toprol Xl) 25 mg PO DAILY [facility] Morphine Sulfate (Duramorph Pf) Confirm Administered Dose 10 mg .ROUTE .STK-MED ONE Stop: 09/21/16 08:42 Naloxone HCl (Narcan) 0.1 mg IVPUSH Q5M PRN PRN Reason: Oversedation Stop: 09/21/16 11:16 Propofol (Diprivan 20 Ml) Confirm Administered Dose 200 mg .ROUTE .STK-MED ONE Stop: 09/21/16 08:37 Propofol (Diprivan 20 Ml) Confirm Administered Dose 200 mg .ROUTE .STK-MED ONE Stop: 09/21/16 09:34 Propofol (Diprivan 20 Ml) Confirm Administered Dose 200 mg .ROUTE .STK-MED ONE Stop: 09/21/16 10:13 Propofol (Diprivan 20 Ml) Confirm Administered Dose 200 mg .ROUTE .STK-MED ONE Stop: 09/21/16 10:53 Scopolamine (Transderm-Scop) 1.5 mg TRDERM Q72H PRN PRN Reason: Nausea/Vomiting Sodium Chloride (Saline Flush) 10 ml FLUSH ASDIRECTED PRN PRN Reason: Keep Vein Open Stop: 09/21/16 12:00 Tranexamic Acid (Cyklokapron) Confirm Administered Dose 1,000 mg .ROUTE .STK- MED ONE Stop: 09/21/16 07:55 Last Admin: 09/21/16 10:42 Dose: 1,000 mg - Exam Wound/Incisions: dressing dry and intact General: alert, cooperative, no acute distress Lungs: Normal respiratory effort Extremities: Other (NVS intact for BLE. Mignon's negative. Left thigh soft.) - Problem List Review Problem List Initiated/Reviewed/Updated: Yes - My Orders Last 24 Hours: Active Orders 24 hr Category Date Time Status Ready for Discharge [RC] PER UNIT ROUTINE Care 09/22/16 13:12 Active Aspirin [Ecotrin] Med 09/22/16 09:00 Active 325 mg PO BID Brimonidine [Alphagan 0.2% Ophth Soln] Med 09/21/16 21:00 Active 0 ml EYEBOTH BID Calcium Carbonate/Vitamin D3 [Calcium Carbonate/Vitamin Med 09/21/16 21:00 Active D 1500 MG-200 Unit] 1 tab PO BID Cholecalciferol (Vitamin D3) [Vitamin D3] Med 09/22/16 09:00 Active 1,000 units PO DAILY Docusate Sodium [Colace] Med 09/21/16 21:00 Active 100 mg PO BID Famotidine [Pepcid] Med 09/21/16 21:00 Active 20 mg PO BID Fish Oil/Crocker-3 Fatty Acids [Fish Oil] Med 09/22/16 09:00 Active 1 gm PO DAILY Latanoprost [Xalatan 0.005% Ophth Soln] Med 09/21/16 21:00 Active 0 ml EYEBOTH BEDTIME Metoprolol Succinate [Toprol XL] Med 09/22/16 17:00 Active 25 mg PO DAILY@1700 Multivitamins,Therapeutic [Thera] Med 09/22/16 07:00 Active 1 each PO WITHBREAKFAST Patient's Own Medication [Ptom] Med 09/22/16 09:00 Active 0 each PO DAILY Remove Patch Med 09/24/16 13:00 Active 0 ea TRDERM Q72H Saccharomyces Boulardii [Florastor] Med 09/22/16 09:00 Active 250 mg PO DAILY Scopolamine [Transderm-Scop] Med 09/21/16 13:00 Active 1.5 mg TRDERM Q72H PRN amLODIPine [Norvasc] Med 09/21/16 17:00 Active 5 mg PO DAILY@1700 Medication Orders Amlodipine Besylate (Norvasc) 5 mg PO DAILY@1700 [facility] Last Admin: 09/21/16 18:18 Dose: 5 mg Aspirin (Ecotrin) 325 mg PO BID [facility] Last Admin: 09/22/16 08:57 Dose: 325 mg Bisacodyl (Dulcolax) 5 mg PO DAILY PRN PRN Reason: Constipation Brimonidine Tartrate (Alphagan 0.2% Ophth Soln) 0 ml EYEBOTH BID [facility] Last Admin: 09/22/16 09:04 Dose: 1 drop Admin: 09/21/16 21:26 Dose: 1 drop Calcium Carbonate (Calcium Carbonate/Vitamin D 1500 Mg-200 Unit) 1 tab PO BID [facility] Last Admin: 09/22/16 08:57 Dose: 1 tab Admin: 09/21/16 21:27 Dose: 1 tab Cholecalciferol (Vitamin D3) 1,000 units PO DAILY [facility] Last Admin: 09/22/16 09:05 Dose: 1,000 units Docusate Sodium (Colace) 100 mg PO BID [facility] Last Admin: 09/22/16 08:55 Dose: 100 mg Admin: 09/21/16 21:27 Dose: 100 mg Famotidine (Pepcid) 20 mg PO BID [facility] Last Admin: 09/22/16 08:56 Dose: 20 mg Admin: 09/21/16 21:27 Dose: 20 mg Fish Oil (Fish Oil) 1 gm PO DAILY [facility] Last Admin: 09/22/16 08:56 Dose: 1 gm Latanoprost (Xalatan 0.005% Ophth Soln) 0 ml EYEBOTH BEDTIME [facility] Last Admin: 09/21/16 21:27 Dose: 1 drop Magnesium Hydroxide (Milk Of Magnesia) 30 ml PO BID PRN PRN Reason: Constipation Metoprolol Succinate (Toprol Xl) 25 mg PO DAILY@1700 [facility] Miscellaneous Information (Remove Patch) 0 ea TRDERM Q72H [facility] Morphine Sulfate (Morphine) 2 mg IVPUSH Q2H PRN PRN Reason: Breakthrough Pain Multivitamins (Thera) 1 each PO WITHBREAKFAST [facility] Last Admin: 09/22/16 06:52 Dose: Not Given Admin: 09/22/16 05:12 Dose: 1 each Ondansetron HCl (Zofran) 4 mg IVPUSH Q6H PRN PRN Reason: Nausea/Vomiting Last Admin: 09/21/16 18:19 Dose: 4 mg Admin: 09/21/16 12:41 Dose: 4 mg Oxycodone/Acetaminophen (Percocet 325-5 Mg) 1 - 2 tab PO Q4H PRN PRN Reason: Pain Last Admin: 09/22/16 11:18 Dose: 1 tab Admin: 09/22/16 05:12 Dose: 2 tab Admin: 09/21/16 21:27 Dose: 2 tab Glucosamine 500 Mg 0 each PO DAILY [facility] Last Admin: 09/22/16 09:05 Dose: Saccharomyces Boulardii (Florastor) 250 mg PO DAILY [facility] Last Admin: 09/22/16 08:55 Dose: 250 mg Scopolamine (Transderm-Scop) 1.5 mg TRDERM Q72H PRN PRN Reason: Nausea Last Admin: 09/21/16 12:57 Dose: 1.5 mg Senna (Senna) 8.6 mg PO BID PRN PRN Reason: Constipation - Assessment Assessment (Free Text/Narrative):: POD# 1 - left FREDRICK - Plan Plan (Free Text/Narrative):: 1. Hgb 11.3 today. 2. Discharge to home today. 3. 325mg ASA BID, frequent mobility, TEDs. 4. FREDRICK precautions. The pt's case was discussed with Dr. Brooks.
[2016-09-22] MEDS ORDERED: Potassium Chloride 20 MEQ Tab.ER PO ONE ×2 (14:35→15:45)
--- NOTE | 2016-09-22 14:43 | PCM48HPAN ---
Post Anesthesia Note - EVALUATION WITHIN 48HRS OF ANESTHETIC Vital Signs in Normal Range: Yes Patient Participated in Evaluation: Yes Respiratory Function Stable: Yes Airway Patent: Yes Cardiovascular Function Stable: Yes Hydration Status Stable: Yes Pain Control Satisfactory: Yes Nausea and Vomiting Control Satisfactory: Yes Mental Status Recovered: Yes
[2016-09-22] MEDS: amLODIPine 5 MG Tab PO SCH (15:59)
[2016-09-22 17:02] VITALS: BP 96/64
--- NOTE | 2016-09-24 07:23 | PCM.DCSUM1 ---
Discharge Summary - Hospital Course Brief History: Ihsan is a 71 yo female who underwent left FREDRICK with Dr. Brooks on 09-21-16. The procedure was completed under spinal anesthesia. The pt tolerated the procedure well and was admitted to the Medical-Surgical unit. The pt participated in P.T. and O.T. and met the in-patient therapy goals. She was allowed to WBAT and used a FWW for mobility. FREDRICK precautions were instructed and followed. A Mepilex dressing was placed at the surgical wound and remained clean and dry. On POD#1, the pt was started on 325mg ASA BID for VTE prophylaxis. SCDs and TEDs were also ordered. On POD#1, the pt's hemoglobin was 11.3. Medial management was provided by the Hospitalist service and the pt's hospital course was uneventful. On POD#1, the pt was deemed appropriate for discharge to home with her family. - Discharge Data Discharge Date: 09/22/16 Discharge Disposition: Home, Self-Care 01 Condition: Good - Patient Summary/Data Consults: Consultations 09/21/16 07:09 Consult to Case Management [CONS] Routine Consult to Physician [CONS] Routine OT Evaluation and Treatment [CONS] Routine 09/21/16 07:12 PT Evaluation and Treatment [CONS] Routine - Patient Instructions Diet: Usual Diet as Tolerated Activity: Apply Ice, As Tolerated, Elevate Extremity, Full Weight Bearing Activity, Other: FREDRICK precautions. Driving: Do Not Drive Showering/Bathing: May Shower Wound/Incision Care: Keep Operative Site/Wound Site Clean and Dry, Do NOT Change Dressing Notify Provider of: Fever, Increased Pain, Swelling and Redness, Drainage, Nausea and/or Vomiting Other/Special Instructions: Please get up and moving around every hour while awake. This helps to prevent blood clots. Please use your walker and have help as needed. Take a 325mg ASPIRIN TWICE DAILY. This also helps to prevent blood clots. The aspirin is being used for blood clot prevention and not for pain management, so please do not miss a dose of the medication. Do the exercises you were taught in the Hospital. Schedule for P.T. Use the pain medication as needed. The medication may cause drowsiness and constipation. Contact your primary care provider for instructions if you are constipated. You may use a stool softener like docusate sodium or Colace 100mg twice daily and/or a laxative like Miralax daily for constipation. Use the ice machine often. Elevate the limb to decrease swelling. Keep the Mepilex dressing in place until follow-up at the Clinic. Notify the Clinic if the dressing is saturated. Wear the GABE hose during the day and you may remove these at night. Eat a diet high in protein as this well help with healing. Schedule an appointment with your primary care provider for 'routine post-op care'. Call the Clinic with questions or concerns - [phone]. - Discharge Plan Prescriptions/Med Rec: Acetaminophen/oxyCODONE [Percocet 325-5 MG] 1 - 2 tab PO Q6H PRN #60 tablet PRN Reason: Pain Aspirin [Ecotrin] 325 mg PO BID #84 tab.ec Cyclobenzaprine [Flexeril] 10 mg PO TID PRN #40 tablet PRN Reason: Muscle Spasm Home Medications: Home Meds Acetaminophen [Tylenol] 325 mg PO Q6H PRN 09/18/16 [History] Beta-Carotene(A) w/C & E/Min [Prosight] 1 tab PO DAILY 09/18/16 [History] Brimonidine Tartrate [Alphagan P 0.1% Ophth Soln] 1 drop EYEBOTH BID 09/18/16 [ History] Calcium Carbonate/Vitamin D3 [Os-Darnell 500+D] 1 tab PO BID 09/18/16 [History] Cholecalciferol (Vitamin D3) [Vitamin D3] 1,000 unit PO DAILY 09/18/16 [History] Glucosamine [Glucosamine Sulfate] 500 mg PO DAILY 09/18/16 [History] L.acidoph,Paracasei, B.lactis [Probiotic] 1 tab PO DAILY 09/18/16 [History] Latanoprost 1 drop EYEBOTH BEDTIME 09/18/16 [History] Metoprolol Succinate [Toprol XL] 25 mg PO DAILY 09/18/16 [History] Mometasone Furoate [Elocon] 1 applic TOP DAILY PRN 09/18/16 [History] amLODIPine [Norvasc] 5 mg PO DAILY 09/18/16 [History] Acetaminophen/oxyCODONE [Percocet 325-5 MG] 1 - 2 tab PO Q6H PRN #60 tablet [Rx] Aspirin [Ecotrin] 325 mg PO BID #84 tab.ec 09/22/16 [Rx] Cyclobenzaprine [Flexeril] 10 mg PO TID PRN #40 tablet 09/22/16 [Rx] Docusate Sodium [Colace] 100 mg PO BID cap 09/22/16 [Rx] Famotidine [Pepcid] 20 mg PO BID tablet 09/22/16 [Rx] Multivitamins,Therapeutic [Thera] 1 each PO WITHBREAKFAST tablet 09/22/16 [Rx] Remove Patch 0 ea TRDERM Q72H each 09/22/16 [Rx] Sennosides [Senna] 8.6 mg PO BID PRN #0 tablet 09/22/16 [Rx] Patient Handouts: Total Hip Replacement, [id number], Hip Rehabilitation After Surgery, Aspirin, ASA oral tablets, Total Hip Replacement, Care After, [id number] Referrals: Jaylene Irizarry PA-C [Physician Delivery Rn] - 09/29/16 10:45 am (Please attend your previously scheduled appointments with Dr. Brooks on September 29 at 10 :45am. The next appointment thereafter is October 06 at 10:45am. ) Kranthi Rowe MD [Primary Care Provider] - (Please schedule a post- surgical follow-up appointment with your primary care doctor, Dr. Rowe, in 1-2 weeks. ) - Patient Data Vitals - Most Recent: Last Vital Signs Temp 99.0 F 09/22/16 16:59 Pulse 92 09/22/16 16:59 Resp 12 09/22/16 16:59 BP 96/64 09/22/16 16:59 Pulse Ox 98 09/22/16 16:59 Weight - Most Recent: 132 lb 1.6 oz Med Orders - Current: Current Medications Discontinued Medications Amlodipine Besylate (Norvasc) 5 mg PO DAILY [facility] Amlodipine Besylate (Norvasc) 5 mg PO DAILY@1700 [facility] Last Admin: 09/22/16 15:59 Dose: 5 mg Aspirin (Ecotrin) 325 mg PO BID [facility] Last Admin: 09/22/16 08:57 Dose: 325 mg Bisacodyl (Dulcolax) 5 mg PO DAILY PRN PRN Reason: Constipation Brimonidine Tartrate (Alphagan 0.2% Ophth Soln) 0 ml EYEBOTH BID [facility] Last Admin: 09/22/16 09:04 Dose: 1 drop Bupivacaine HCl (Marcaine 0.25%) Confirm Administered Dose 30 ml .ROUTE .STK- MED ONE Stop: 09/21/16 07:55 Last Admin: 09/21/16 10:40 Dose: 30 ml Calcium Carbonate (Calcium Carbonate/Vitamin D 1500 Mg-200 Unit) 1 tab PO BID [facility] Last Admin: 09/22/16 08:57 Dose: 1 tab Cefazolin Sodium (Ancef) Confirm Administered Dose 2 gm .ROUTE .STK-MED ONE Stop: 09/21/16 07:55 Last Admin: 09/21/16 10:35 Dose: 2 gm Cefazolin Sodium (Ancef) Confirm Administered Dose 2 gm .ROUTE .STK-MED ONE Stop: 09/21/16 08:37 Cholecalciferol (Vitamin D3) 1,000 units PO DAILY [facility] Last Admin: 09/22/16 09:05 Dose: 1,000 units Morphine Sulfate 8 mg/Epinephrine HCl 0.3 mg/Cefuroxime Sodium 750 mg/Ketorolac Tromethamine 30 mg/Sodium Chloride 27.9 ml 0 mg .XX ONETIME ONE Stop: 09/21/16 09:01 Last Admin: 09/21/16 10:39 Dose: 788.3 mg Diphenhydramine HCl (Benadryl) 25 mg IVPUSH Q6H PRN PRN Reason: Itching Stop: 09/21/16 18:00 Diphenhydramine HCl (Benadryl) 50 mg IVPUSH ONETIME ONE Stop: 09/21/16 13:36 Last Admin: 09/21/16 13:41 Dose: 50 mg Docusate Sodium (Colace) 100 mg PO BID [facility] Last Admin: 09/22/16 08:55 Dose: 100 mg Ephedrine Sulfate (Ephedrine In Ns) Confirm Administered Dose 25 mg .ROUTE .STK- MED ONE Stop: 09/21/16 09:59 Famotidine (Pepcid) 20 mg PO BID [facility] Last Admin: 09/22/16 08:56 Dose: 20 mg Fentanyl (Sublimaze) Confirm Administered Dose 100 mcg .ROUTE .STK-MED ONE Stop: 09/21/16 08:37 Fentanyl (Sublimaze) 50 mcg IVPUSH Q5M PRN PRN Reason: PAIN Stop: 09/21/16 18:00 Fish Oil (Fish Oil) 1 gm PO DAILY [facility] Last Admin: 09/22/16 08:56 Dose: 1 gm Lactated Ringer's (Ringers, Lactated) 1,000 mls @ 125 mls/hr IV ASDIRECTED [facility] Stop: 09/21/16 23:00 Last Admin: 09/21/16 11:58 Dose: 125 mls/hr Cefazolin Sodium/Dextrose 2 gm (/ Premix) 50 mls @ 100 mls/hr IV Q8H [facility] Stop: 09/22/16 09:29 Last Admin: 09/22/16 08:58 Dose: 100 mls/hr Lidocaine HCl (Xylocaine-Mpf 1%) Confirm Administered Dose 4 mls @ as directed .ROUTE .STK-MED ONE Stop: 09/21/16 08:37 Iodine (Iodine 2% Mild Tincture) Confirm Administered Dose 30 ml .ROUTE .STK- MED ONE Stop: 09/21/16 07:55 Last Admin: 09/21/16 10:33 Dose: 30 ml Latanoprost (Xalatan 0.005% Ophth Soln) 0 ml EYEBOTH BEDTIME [facility] Last Admin: 09/21/16 21:27 Dose: 1 drop Lidocaine/Sodium Bicarbonate (Buffered Lidocaine 1% In Ns 8.4%) 0.25 ml IV ONETIME PRN PRN Reason: Prior to IV Start Stop: 09/21/16 12:00 Last Admin: 09/21/16 07:49 Dose: 0.25 ml Magnesium Hydroxide (Milk Of Magnesia) 30 ml PO BID PRN PRN Reason: Constipation Metoprolol Succinate (Toprol Xl) 25 mg PO DAILY [facility] Metoprolol Succinate (Toprol Xl) 25 mg PO DAILY@1700 [facility] Last Admin: 09/22/16 16:00 Dose: 25 mg Miscellaneous Information (Remove Patch) 0 ea TRDERM Q72H [facility] Morphine Sulfate (Morphine) 2 mg IVPUSH Q2H PRN PRN Reason: Breakthrough Pain Morphine Sulfate (Duramorph Pf) Confirm Administered Dose 10 mg .ROUTE .STK-MED ONE Stop: 09/21/16 08:42 Multivitamins (Thera) 1 each PO WITHBREAKFAST [facility] Last Admin: 09/22/16 06:52 Dose: Not Given Naloxone HCl (Narcan) 0.1 mg IVPUSH Q5M PRN PRN Reason: Oversedation Stop: 09/21/16 11:16 Ondansetron HCl (Zofran) 4 mg IVPUSH Q6H PRN PRN Reason: Nausea/Vomiting Last Admin: 09/21/16 18:19 Dose: 4 mg Oxycodone/Acetaminophen (Percocet 325-5 Mg) 1 - 2 tab PO Q4H PRN PRN Reason: Pain Last Admin: 09/22/16 15:48 Dose: 1 tab Glucosamine 500 Mg 0 each PO DAILY [facility] Last Admin: 09/22/16 09:05 Dose: Not Given Potassium Chloride (Klor-Con M20) 40 meq PO ONETIME ONE Stop: 09/22/16 14:36 Last Admin: 09/22/16 15:58 Dose: Not Given Potassium Chloride (Klor-Con M20) 40 meq PO ONETIME ONE Stop: 09/22/16 15:46 Last Admin: 09/22/16 15:56 Dose: 40 meq Propofol (Diprivan 20 Ml) Confirm Administered Dose 200 mg .ROUTE .STK-MED ONE Stop: 09/21/16 08:37 Propofol (Diprivan 20 Ml) Confirm Administered Dose 200 mg .ROUTE .STK-MED ONE Stop: 09/21/16 09:34 Propofol (Diprivan 20 Ml) Confirm Administered Dose 200 mg .ROUTE .STK-MED ONE Stop: 09/21/16 10:13 Propofol (Diprivan 20 Ml) Confirm Administered Dose 200 mg .ROUTE .STK-MED ONE Stop: 09/21/16 10:53 Saccharomyces Boulardii (Florastor) 250 mg PO DAILY [facility] Last Admin: 09/22/16 08:55 Dose: 250 mg Scopolamine (Transderm-Scop) 1.5 mg TRDERM Q72H PRN PRN Reason: Nausea Last Admin: 09/21/16 12:57 Dose: 1.5 mg Scopolamine (Transderm-Scop) 1.5 mg TRDERM Q72H PRN PRN Reason: Nausea/Vomiting Senna (Senna) 8.6 mg PO BID PRN PRN Reason: Constipation Sodium Chloride (Saline Flush) 10 ml FLUSH ASDIRECTED PRN PRN Reason: Keep Vein Open Stop: 09/21/16 12:00 Tranexamic Acid (Cyklokapron) Confirm Administered Dose 1,000 mg .ROUTE .[facility]- MED ONE Stop: 09/21/16 07:55 Last Admin: 09/21/16 10:42 Dose: 1,000 mg *Q Meaningful Use (DIS) - VTE *Q VTE Criteria *Q: - Stroke *Q Stroke Criteria *Q: - AMI *Q AMI Criteria *Q:
--- NOTE | 2016-09-27 21:01 | PCM.OPNOTE ---
- General Post-Op/Procedure Note Date of Surgery/Procedure: 09/21/16 Operative Procedure(s): left total hip arthroplasty Pre Op Diagnosis: left hip osteoarthrosis Post-Op Diagnosis: Same Anesthesia Technique: Local, MAC, Spinal Primary Surgeon: Kevon Brooks Anesthesia Provider: Mendoza Laboy Brazing Machine Setter: Jaylene Irizarry Brazing Machine Setter: Nguyen Fitzgerald EBLeila in mLs: 300 Complications: None Condition: Good
--- NOTE | 2016-09-27 22:12 | OR ---
DATE OF OPERATION: 09/21/2016 SURGEON: Kevon Brooks MD OPERATION PERFORMED: Left total hip arthroplasty. PREOPERATIVE DIAGNOSIS: Left hip osteoarthrosis. POSTOPERATIVE DIAGNOSIS: Left hip osteoarthrosis. ANESTHESIA: Local MAC with spinal. ANESTHESIA PROVIDER: Mendoza Laboy CRNA. ELECTRICAL CONTROLS ENGINEER: Jaylene Irizarry PA-C and Nguyen Fitzgerald LPN. ESTIMATED BLOOD LOSS: 300 mL. COMPLICATIONS: None. CONDITION: Stable. IMPLANTS: 1. [place] size 5 Accolade II stem. 2. [place] size 58 mm Titanium acetabular cup. 3. Pramod size 36 mm 10 degree elevated liner. 4. A 36 mm Biolox ceramic head. DESCRIPTION OF PROCEDURE: The patient was identified in the preop holding area. Proper site was marked and identified by the surgeon. The patient was taken back to the OR where after adequate anesthesia, the patient was placed in a right lateral decubitus position and axillary roll was placed. The pegs were then placed. The patient's gluteal fold was parallel to the floor. All bony prominences were well padded. The left hip was then sterilely prepped and draped in the usual sterile fashion. OR time-out was performed. The patient received 2 g IV Ancef. At this time, an incision was made centered over the greater trochanter. This was taken down to the IT band and gluteal fascia, which was incised along the incisional length. The patient was found to have almost no external rotation. The abductors were identified and protected and takedown of the short external rotators was done with piriformis tendon, all the way down to the level of lesser trochanter along with capsulotomy. The patient did have significant flattening of the femoral head, and it was difficult to dislocate, but we were able to dislocate it. Neck cut guide was then placed. The neck cut was then completed. Anterior and posterior acetabular retractors were then placed. The remaining labrum was removed along with the pulvinar. Starting with a 46 reamer, I was able to ream up to a 57 for a 58 mm cup. At this time, it was found to be in about 45 degrees of abduction along with 10 degrees of anteversion. A solid Tritanium acetabular cup was impacted into place and this position was found to have adequate fixation after the trial was also found to have adequate fixation. A 36 mm 10 degree elevated polyethylene was then impacted into place, size E. Attention was then turned to the femur. A femoral elevator was placed. A box chisel was used out laterally. Starting awl was placed down the canal. Starting with a size 0 broach, I was able to broach up to a size 5 which was found to be rotationally and vertically stable. At this time, a 36 mm head was placed and the hip was relocated. There was found to be adequate mandaeism of leg lengths and the patient's hip was stable throughout for range of motion. Bone hook was used for dislocation of the trial components. At this time, size 5 Accolade II stem was then impacted in place. A 36 mm Biolox head was then impacted into place and the hip was relocated, 1 L dilute Betadine solution was then irrigated through the hip along 3 L pulse lavage irrigation with Ancef. Periarticular injection was then completed. Two #5 Ethibond suture was used for closure of the capsule and short external rotators. A #2 barbed suture was used for closure of the IT band and gluteal fascia, 2-0 Vicryl was used subcutaneously and Prineo was used for the skin. Sterile soft dressing was applied. The patient tolerated the procedure well and sent to PACU in stable condition. ELMER /[id number]
== END 2016-09-22 17:37 | disposition home or self-care (01) | DRG 470 ==
LOC: JD.MS 06:25
PROVIDERS: ADMIT Orthopaedic Surgery; ATTEND Orthopaedic Surgery
PROC: 0SRB019 Replacement of Left Hip Joint with Metal Synthetic Substitute, Cemented, Open Approach (ICD-10-PCS; principal; 2016-09-21)
DX: M16.12 Unilateral primary osteoarthritis, left hip (principal); K21.9 Gastro-esophageal reflux disease without esophagitis; E78.2 Mixed hyperlipidemia; I10 Essential (primary) hypertension; J30.9 Allergic rhinitis, unspecified; M85.80 Other specified disorders of bone density and structure, unspecified site; Z88.1 Allergy status to other antibiotic agents; Z88.8 Allergy status to other drugs, medicaments and biological substances; Z91.040 Latex allergy status; Z86.73 Personal history of transient ischemic attack (TIA), and cerebral infarction without residual deficits; Z85.038 Personal history of other malignant neoplasm of large intestine
CPT/HCPCS: 01214; 36415; 73501-26-LT; 73501-LT; 80053; 85025; 86850; 86900; 86901; 87641; 94762; 97110-GP; 97116-GP; 97162-GP; 97166-GO; 97530-GP; 97535-GO; A9270-GY; C1776; J0171; J0690; J0697; J1200; J1885; J2270; J2405; J2704; J3010; J3490; J7050; J7120

== ENCOUNTER 2019-06-02 05:54 | Emergency (ER) | payer MEDICARE, BC ==
[2019-06-02 06:06] VITALS: BP 158/99; PULSE 79
--- NOTE | 2019-06-02 06:26 | EDM.PDOC ---
<Ignacio Hurt - Last Filed: 06/02/19 06:31> ED HPI GENERAL MEDICAL PROBLEM - General Chief Complaint: Genitourinary Problem Stated Complaint: LEFT SIDE FLANK PAIN THAT RADIATES TO THE FRONT Time Seen by Provider: 06/02/19 06:05 - History of Present Illness INITIAL COMMENTS - FREE TEXT/NARRATIVE: 73-year-old female presents the emergency room with left-sided lower chest pain. This pain started roughly 24 hours ago left lower chest radiates towards the front. At times it radiates towards her shoulder. This is not associated with shortness of breath. She is noticed that she perhaps is voiding more than normal however she does not have any burning or discomfort with this. She is not aware of any fevers or chills. She has not been coughing. She has not had any nausea or vomiting. She does not have any history of heart disease. She never smoked. The patient has had some right calf pain but has not noticed any swelling with this. The patient is in physical therapy for her right hip. Bilateral Flank Pain Score (Numeric/FACES): 6 - Related Data Allergies Allergy/AdvReac Type Severity Reaction Status Date / Time guaifenesin AdvReac Nausea Verified 06/02/19 06:04 metronidazole [From Flagyl] AdvReac Nausea Verified 06/02/19 06:04 pseudoephedrine AdvReac Nausea Verified 06/02/19 06:04 [From Sudafed] Home Meds: Home Meds Acetaminophen [Tylenol] 325 mg PO Q6H PRN 09/18/16 [History] Beta-Carotene(A) w/C & E/Min [Prosight] 1 tab PO DAILY 09/18/16 [History] Brimonidine Tartrate [Alphagan P 0.1% Ophth Soln] 1 drop EYEBOTH BID 09/18/16 [ History] Calcium Carbonate/Vitamin D3 [Os-Darnell 500+D] 1 tab PO BID 09/18/16 [History] Cholecalciferol (Vitamin D3) [Vitamin D3] 1,000 unit PO DAILY 09/18/16 [History] Glucosamine [Glucosamine Sulfate] 500 mg PO DAILY 09/18/16 [History] L.acidoph,Paracasei, B.lactis [Probiotic] 1 tab PO DAILY 09/18/16 [History] Latanoprost 1 drop EYEBOTH BEDTIME 09/18/16 [History] Metoprolol Succinate [Toprol XL] 25 mg PO DAILY 09/18/16 [History] Mometasone Furoate [Elocon] 1 applic TOP DAILY PRN 09/18/16 [History] amLODIPine [Norvasc] 5 mg PO DAILY 09/18/16 [History] Acetaminophen/oxyCODONE [Percocet 325-5 MG] 1 - 2 tab PO Q6H PRN #60 tablet [Rx] Aspirin [Ecotrin] 325 mg PO BID #84 tab.ec 09/22/16 [Rx] Cyclobenzaprine [Flexeril] 10 mg PO TID PRN #40 tablet 09/22/16 [Rx] Docusate Sodium [Colace] 100 mg PO BID cap 09/22/16 [Rx] Famotidine [Pepcid] 20 mg PO BID tablet 09/22/16 [Rx] Multivitamins,Therapeutic [Thera] 1 each PO WITHBREAKFAST tablet 09/22/16 [Rx] Remove Patch 0 ea TRDERM Q72H each 09/22/16 [Rx] Sennosides [Senna] 8.6 mg PO BID PRN #0 tablet 09/22/16 [Rx] Past Medical History HEENT History: Reports: Allergic Rhinitis, Cataract, Impaired Vision, Sinusitis Other HEENT History: hypertrophy of nasal turbinates, acute abcess of maxillary sinus Cardiovascular History: Reports: High Cholesterol, Hypertension Respiratory History: Reports: Other (See Below) Other Respiratory History: cough Gastrointestinal History: Reports: GERD, Other (See Below) Other Gastrointestinal History: malignant neoplasm of colon Genitourinary History: Reports: Pyelonephritis 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: Musculoskeletal History: Reports: Back Pain, Chronic, Osteoarthritis, Other ( See Below) Other Musculoskeletal History: osteopenia, L hip and shoulder pain Neurological History: Reports: CVA Psychiatric History: Reports: None Endocrine/Metabolic History: Reports: None Hematologic History: Reports: None Immunologic History: Reports: None Oncologic (Cancer) History: Reports: None Dermatologic History: Reports: Seborrheic Dermatitis - Infectious Disease History Infectious Disease History: Reports: None - Past Surgical History Head Surgeries/Procedures: Reports: None HEENT Surgical History: Reports: Cataract Surgery GI Surgical History: Reports: Appendectomy, Colonoscopy Endocrine Surgical History: Reports: None Musculoskeletal Surgical History: Reports: Hip Replacement Oncologic Surgical History: Reports: None Dermatological Surgical History: Reports: None Social & Family History - Family History Family Medical History: Noncontributory - Caffeine Use Caffeine Use: Reports: Coffee, Tea Caffeine Use Comment: drinks 3 teas a day ED ROS GENERAL - Review of Systems Review Of Systems: See Below Constitutional: Reports: No Symptoms HEENT: Reports: No Symptoms Respiratory: Reports: No Symptoms, Pleuritic Chest Pain Cardiovascular: Reports: Chest Pain ED EXAM, GI/ABD - Physical Exam Exam: See Below Exam Limited By: No Limitations General Appearance: Alert, No Apparent Distress Head: Atraumatic, Normocephalic Neck: Normal Inspection, Supple, Non-Tender, Full Range of Motion Respiratory/Chest: No Respiratory Distress, Lungs Clear, Normal Breath Sounds Cardiovascular: Regular Rate, Rhythm, No Edema, No Gallop, No JVD, No Murmur GI/Abdominal Exam: Normal Bowel Sounds, Soft, Tender (He has some vague left- sided discomfort not worsened with palpation) Back Exam: Normal Inspection. No: CVA Tenderness (L), CVA Tenderness (R) Extremities: Other (Left calf is tender not significantly more swollen than the left no erythema or warmth appreciated) Neurological: Alert, Oriented, Normal Cognition Skin Exam: Warm, Dry, Normal Color Lymphatic: No Adenopathy EKG INTERPRETATION EKG Date: 06/02/19 Rhythm: Other (Sinus dysrhythmia) Rate (Beats/Min): 79 Clark: Normal P-Wave: Present QRS: Normal ST-T: Normal QT: Normal AL/PQ Interval: Normal Comparison: NA - No Prior EKG EKG Interpretation Comments: Borderline EKG no prior for comparison. Course - Vital Signs Last Recorded V/S: Last Vital Signs Temp 97.5 F 06/02/19 06:04 Pulse 79 06/02/19 06:04 Resp 19 06/02/19 06:04 BP 158/99 H 06/02/19 06:04 Pulse Ox 97 06/02/19 06:04 - Orders/Labs/Meds Orders: Active Orders 24 hr Category Date Time Status Cardiac Monitoring [RC] . DIRECTED Care 06/02/19 06:47 Active EKG Documentation Completion [RC] STAT Care 06/02/19 06:23 Active Labs: Laboratory Tests 06/02/19 06/02/19 06/02/19 Range/Units 06:35 06:35 06:35 WBC 6.93 (3.98-10.04) K/mm3 RBC 4.60 (3.98-5.22) M/mm3 Hgb 14.5 D (11.2-15.7) gm/dl Hct 43.8 (34.1-44.9) % MCV 95.2 H (79.4-94.8) fl MCH 31.5 (25.6-32.2) pg MCHC 33.1 (32.2-35.5) g/dl RDW Std Deviation 43.7 (36.4-46.3) fL Plt Count 274 (182-369) K/mm3 MPV 8.5 L (9.4-12.3) fl Neut % (Auto) 70.9 (34.0-71.1) % Lymph % (Auto) 21.9 (19.3-51.7) % Lamar % (Auto) 5.8 (4.7-12.5) % Eos % (Auto) 0.4 L (0.7-5.8) Baso % (Auto) 0.7 (0.1-1.2) % Neut # (Auto) 4.91 (1.56-6.13) K/mm3 Lymph # (Auto) 1.52 (1.18-3.74) K/mm3 Lamar # (Auto) 0.40 H (0.24-0.36) K/mm3 Eos # (Auto) 0.03 L (0.04-0.36) K/mm3 Baso # (Auto) 0.05 (0.01-0.08) K/mm3 PT 10.9 (9.7-12.0) SECONDS INR 1.00 APTT 26 (22-31) SECONDS D-Dimer, Quantitative (0.19-0.50) mg/L Sodium 139 (136-145) mEq/L Potassium 3.6 (3.5-5.1) mEq/L Chloride 103 (98-107) mEq/L Carbon Dioxide 26 (21-32) mEq/L Anion Gap 13.6 (5-15) BUN 14 (7-18) mg/dL Creatinine 0.8 (0.55-1.02) mg/dL Est Cr Clr Drug Dosing 51.81 mL/min Estimated GFR (MDRD) > 60 (>60) mL/min BUN/Creatinine Ratio 17.5 (14-18) Glucose 113 (83-115) mg/dL Calcium 9.2 (8.5-10.1) mg/dL Total Bilirubin 0.4 (0.2-1.0) mg/dL AST 8 L (15-37) U/L ALT 26 (14-59) U/L Alkaline Phosphatase 82 (46-116) U/L Troponin I < 0.017 (0.00-0.056) ng/mL Total Protein 6.7 (6.4-8.2) g/dl Albumin 3.7 (3.4-5.0) g/dl Globulin 3.0 gm/dL Albumin/Globulin Ratio 1.2 (1-2) Urine Color (Yellow) Urine Appearance (Clear) Urine pH (5.0-8.0) Ur Specific [place] (1.005-1.030) Urine Protein (Negative) Urine Glucose (UA) (Negative) Urine Ketones (Negative) Urine Occult Blood (Negative) Urine Nitrite (Negative) Urine Bilirubin (Negative) Urine Urobilinogen (0.2-1.0) Ur Leukocyte Esterase (Negative) 06/02/19 06/02/19 Range/Units 06:35 07:45 WBC (3.98-10.04) K/mm3 RBC (3.98-5.22) M/mm3 Hgb (11.2-15.7) gm/dl Hct (34.1-44.9) % MCV (79.4-94.8) fl MCH (25.6-32.2) pg MCHC (32.2-35.5) g/dl RDW Std Deviation (36.4-46.3) fL Plt Count (182-369) K/mm3 MPV (9.4-12.3) fl Neut % (Auto) (34.0-71.1) % Lymph % (Auto) (19.3-51.7) % Lamar % (Auto) (4.7-12.5) % Eos % (Auto) (0.7-5.8) Baso % (Auto) (0.1-1.2) % Neut # (Auto) (1.56-6.13) K/mm3 Lymph # (Auto) (1.18-3.74) K/mm3 Lamar # (Auto) (0.24-0.36) K/mm3 Eos # (Auto) (0.04-0.36) K/mm3 Baso # (Auto) (0.01-0.08) K/mm3 PT (9.7-12.0) SECONDS INR APTT (22-31) SECONDS D-Dimer, Quantitative 0.38 (0.19-0.50) mg/L Sodium (136-145) mEq/L Potassium (3.5-5.1) mEq/L Chloride (98-107) mEq/L Carbon Dioxide (21-32) mEq/L Anion Gap (5-15) BUN (7-18) mg/dL Creatinine (0.55-1.02) mg/dL Est Cr Clr Drug Dosing mL/min Estimated GFR (MDRD) (>60) mL/min BUN/Creatinine Ratio (14-18) Glucose (83-115) mg/dL Calcium (8.5-10.1) mg/dL Total Bilirubin (0.2-1.0) mg/dL AST (15-37) U/L ALT (14-59) U/L Alkaline Phosphatase (46-116) U/L Troponin I (0.00-0.056) ng/mL Total Protein (6.4-8.2) g/dl Albumin (3.4-5.0) g/dl Globulin gm/dL Albumin/Globulin Ratio (1-2) Urine Color Yellow (Yellow) Urine Appearance Clear (Clear) Urine pH 7.5 (5.0-8.0) Ur Specific [place] 1.020 (1.005-1.030) Urine Protein Negative (Negative) Urine Glucose (UA) Negative (Negative) Urine Ketones Negative (Negative) Urine Occult Blood Negative (Negative) Urine Nitrite Negative (Negative) Urine Bilirubin Negative (Negative) Urine Urobilinogen 0.2 (0.2-1.0) Ur Leukocyte Esterase Negative (Negative) Departure - Departure Disposition: Home, Self-Care 01 Clinical Impression: Atypical chest pain Back pain Qualifiers: Back pain location: low back pain Back pain laterality: midline Sciatica presence: without sciatica - Discharge Information Instructions: Acute Back Pain, Adult, Nonspecific Chest Pain, Adult Referrals: Kranthi Rowe MD [Primary Care Provider] - Forms: ED Department Discharge Additional Instructions: Continue Tylenol 2-3 times daily as needed. You can also alternate ice and heat as needed. Your heart and lungs have checked out really well this morning here in the ED. May as well keep your appointment with Dr. Landeros so he can be aware that difficulty you are having and help provide further guidance. The labs will print out on your discharge information. Chest x-ray this morning was clear, your EKG did not show acute findings. Your troponin checking for heart attack was negative and your d-dimer checking for blood clot was negative. UA was clear. Return to ED as needed if symptoms worsening in any way. Sepsis Event Note - Evaluation Sepsis Screening Result: No Definite Risk - Focused Exam Vital Signs: Vital Signs Temp Pulse Resp BP Pulse Ox 06/02/19 06:04 97.5 F 79 19 158/99 H 97 Date Exam was Performed: 06/02/19 Time Exam was Performed: 06:31 <Declan Douglas - Last Filed: 06/02/19 09:00> Course - Re-Assessments/Exams Free Text/Narrative Re-Assessment/Exam: 06/02/19 08:58 Have assumed care from Dr. Hurt. I do agree with his history and exam as documented. I have also interviewed and examined patient. Chest x-ray was clear, EKG showed some mild nonspecific changes but troponin was negative. Her d-dimer came back negative white blood count was normal, UA normal. She did already have a clinic appointment at 930 this morning with her regular provider Dr Landeros. Because they do live an hour out of town he does want to keep that appointment and I not going to advise against that. That way at least Dr Landeros be aware of what we have done and help guide her through current symptoms. Low back discomfort does seem to be primarily mechanical. May be coming down with some type of viral illness making her more ill and achy as well. Departure - Departure Time of Disposition: 08:18 Condition: Fair Sepsis Event Note - Focused Exam Date Exam was Performed: 06/02/19 Time Exam was Performed: 08:58
--- NOTE | 2019-06-02 07:17 | CR ---
Chest: Portable view of the chest was obtained. Comparison: No prior chest imaging is available. Heart size appears slightly enlarged. Upper mediastinum is normal. Lungs are clear with no acute parenchymal change. Deformity of the proximal left humerus is seen most likely due to old fracture with secondary degenerative change within the glenohumeral joint. Mild degenerative change is also noted within the shoulder on the right side. Mild scoliosis is seen. Impression: 1. Findings as noted above. 2. Nothing acute is seen. Diagnostic code #2 Study was dictated in MDT
== END 2019-06-02 08:30 | disposition home or self-care (01) ==
LOC: JD.ED 05:54
DX: R07.89 Other chest pain (principal); M54.5 Low back pain; I10 Essential (primary) hypertension; E78.00 Pure hypercholesterolemia, unspecified; K21.9 Gastro-esophageal reflux disease without esophagitis; M19.90 Unspecified osteoarthritis, unspecified site; Z86.73 Personal history of transient ischemic attack (TIA), and cerebral infarction without residual deficits; Z88.8 Allergy status to other drugs, medicaments and biological substances; Z79.899 Other long term (current) drug therapy; Z79.82 Long term (current) use of aspirin
CPT/HCPCS: 36415; 71045; 71045-26; 80053; 81003; 84484; 85025; 85379; 85610; 85730; 93005; 93010; 99283; 99285-25

== ENCOUNTER 2019-08-09 11:48 | Emergency (ER) | payer MEDICARE, BC ==
--- NOTE | 2019-08-09 12:20 | EDM.PDOC ---
ED HPI GENERAL MEDICAL PROBLEM - General Chief Complaint: Neurological Problem Stated Complaint: POSS STROKE-SENT FROM [facility] Time Seen by Provider: 08/09/19 12:17 Source of Information: Reports: Patient History Limitations: Reports: No Limitations - History of Present Illness INITIAL COMMENTS - FREE TEXT/NARRATIVE: 74-year-old female presents to the ED with acute visual field change starting about 9:15 this morning. She developed sudden onset of visual field loss particularly in the peripheral visual field of her right eye. She can see centrally but it is still slightly blurry. She has a history of glaucoma and uses drops in both eyes. Apparently the left eye has usually higher intraocular pressure than the right. There has been no recent changes in her eyedrops. Has headache or nausea. She has no history of atrial fibrillation or irregular heartbeats. History of hypertension which apparently is well controlled. She does take a baby aspirin daily. No previous TIA or CVA. Onset: Today, Sudden Onset Date: 08/09/19 Onset Time: 09:15 Duration: Hour(s):, Constant, Other (0 field has not improved at all in the right eye since onset) Location: Reports: Face (Visual field acute change right eye loss of peripheral vision blurred central vision) Quality: Reports: Other (No eye pain) Severity: Severe Improves with: Reports: None Worsens with: Reports: None Context: Reports: Other (On spontaneous onset.). 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) (None.) - Related Data Allergies Allergy/AdvReac Type Severity Reaction Status Date / Time guaifenesin AdvReac Nausea Verified 06/02/19 06:04 metronidazole [From Flagyl] AdvReac Nausea Verified 06/02/19 06:04 pseudoephedrine AdvReac Nausea Verified 06/02/19 06:04 [From Sudafed] Home Meds: Home Meds Acetaminophen [Tylenol] 325 mg PO Q6H PRN 09/18/16 [History] Beta-Carotene(A) w/C & E/Min [Prosight] 1 tab PO DAILY 09/18/16 [History] Brimonidine Tartrate [Alphagan P 0.1% Ophth Soln] 1 drop EYEBOTH BID 09/18/16 [ History] Calcium Carbonate/Vitamin D3 [Os-Darnell 500+D] 1 tab PO BID 09/18/16 [History] Cholecalciferol (Vitamin D3) [Vitamin D3] 1,000 unit PO DAILY 09/18/16 [History] Glucosamine [Glucosamine Sulfate] 500 mg PO DAILY 09/18/16 [History] L.acidoph,Paracasei, B.lactis [Probiotic] 1 tab PO DAILY 09/18/16 [History] Latanoprost 1 drop EYEBOTH BEDTIME 09/18/16 [History] Metoprolol Succinate [Toprol XL] 25 mg PO DAILY 09/18/16 [History] Mometasone Furoate [Elocon] 1 applic TOP DAILY PRN 09/18/16 [History] amLODIPine [Norvasc] 5 mg PO DAILY 09/18/16 [History] Acetaminophen/oxyCODONE [Percocet 325-5 MG] 1 - 2 tab PO Q6H PRN #60 tablet [Rx] Aspirin [Ecotrin] 325 mg PO BID #84 tab.ec 09/22/16 [Rx] Cyclobenzaprine [Flexeril] 10 mg PO TID PRN #40 tablet 09/22/16 [Rx] Docusate Sodium [Colace] 100 mg PO BID cap 09/22/16 [Rx] Famotidine [Pepcid] 20 mg PO BID tablet 09/22/16 [Rx] Multivitamins,Therapeutic [Thera] 1 each PO WITHBREAKFAST tablet 09/22/16 [Rx] Remove Patch 0 ea TRDERM Q72H each 09/22/16 [Rx] Sennosides [Senna] 8.6 mg PO BID PRN #0 tablet 09/22/16 [Rx] Past Medical History HEENT History: Reports: Allergic Rhinitis, Cataract, Glaucoma (Drops daily for glaucoma), Impaired Vision, Sinusitis Other HEENT History: hypertrophy of nasal turbinates, acute abcess of maxillary sinus Cardiovascular History: Reports: High Cholesterol, Hypertension Respiratory History: Reports: Other (See Below) Other Respiratory History: cough Gastrointestinal History: Reports: GERD, Other (See Below) Other Gastrointestinal History: malignant neoplasm of colon Genitourinary History: Reports: Pyelonephritis 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: Musculoskeletal History: Reports: Back Pain, Chronic, Osteoarthritis, Other ( See Below) Other Musculoskeletal History: osteopenia, L hip and shoulder pain Neurological History: Reports: CVA Psychiatric History: Reports: None Endocrine/Metabolic History: Reports: None Hematologic History: Reports: None Immunologic History: Reports: None Oncologic (Cancer) History: Reports: None Dermatologic History: Reports: Seborrheic Dermatitis - Infectious Disease History Infectious Disease History: Reports: None - Past Surgical History Head Surgeries/Procedures: Reports: None HEENT Surgical History: Reports: Cataract Surgery GI Surgical History: Reports: Appendectomy, Colonoscopy Endocrine Surgical History: Reports: None Musculoskeletal Surgical History: Reports: Hip Replacement Oncologic Surgical History: Reports: None Dermatological Surgical History: Reports: None Social & Family History - Family History Family Medical History: Noncontributory - Caffeine Use Caffeine Use: Reports: Coffee, Tea Caffeine Use Comment: drinks 3 teas a day - Living Situation & Occupation Living situation: Reports: , Alone Occupation: Retired ED ROS GENERAL - Review of Systems Review Of Systems: See Below Constitutional: Denies: Fever, Chills, Malaise, Weakness, Fatigue, Decreased Appetite, Weight Loss HEENT: Reports: Glasses, Other (Acute visual field change right eye at 915 this morning) Respiratory: Reports: No Symptoms. Denies: Shortness of Breath, Cough Cardiovascular: Reports: Blood Pressure Problem (Well-controlled with medication ). Denies: Chest Pain, Lightheadedness, Orthopnea Endocrine: Reports: No Symptoms GI/Abdominal: Reports: No Symptoms : Reports: Frequency, Incontinence Musculoskeletal: Reports: Back Pain (Urge and stress components), Joint Pain ( Some pain knees hips and neck and shoulders at times) Skin: Reports: No Symptoms Neurological: Reports: No Symptoms Psychiatric: Reports: No Symptoms Hematologic/Lymphatic: Reports: No Symptoms Immunologic: Reports: No Symptoms ED EXAM GENERAL W FULL EYE - Physical Exam Exam: See Below Exam Limited By: No Limitations General Appearance: Alert, WD/WN, Anxious, Mild Distress, Other (Course naturally concerned about visual field loss right eye. Temperature is 36.8 heart rate is 79 respiratory is 18 BP 149/81 pulse ox 98% room air .BP came down to 128/82) Eye Exam: Right Eye: Normal Fundi (The arterial supply to the retina appears to be intact. I could not see any dilated veins.), Bilateral Eye: PERRL, Other ( Pupil on the right is 7 mm pupil on the left is 5 mm.) Eyelids: Bilateral: Normal Appearance Conjunctiva & Sclera: Bilateral: Normal Appearance Cornea Exam: Bilateral: Normal Appearance Extraocular Movements: Bilateral: Intact Pupils: Normal Accommodation Pupillary Size: Right: 7 mm, Left: 5 mm Pupillary Reaction: Bilateral: Sluggish Anterior Chamber: Bilateral: Normal Appearance Posterior Chamber: Right: Normal Funduscopic (The retina is of normal color without pallor. There does not appear to be any central arterial occlusion. Questioning venous occlusion as the veins are not obvious. Ultrasound of the orbit reveals no evidence of a retinal detachment.) Course - Vital Signs Last Recorded V/S: Last Vital Signs Temp 35.8 C L 08/09/19 11:58 Pulse 79 08/09/19 11:58 Resp 18 08/09/19 11:58 BP 149/81 H 08/09/19 11:58 Pulse Ox 98 08/09/19 11:58 - Radiology Interpretation Free Text/Narrative:: 74-year-old female presents to the ED with acute visual field change in her right eye since about court after 9 this morning. She complains of diffuse loss of peripheral vision and blurred vision centrally in the right eye. She has glaucoma and is on drops for both eyes. Headache or any other symptoms. She is in sinus rhythm and blood pressure is normal. The pressure it does appear to be mildly elevated in the right eye as compared to the left. Questionable central venous occlusion in this eye. I am going to send her to her product designer Dr. My Calhoun for her opinion. Patient is to travel to Dr. Calhoun's office as soon as she leaves the ED. Departure - Departure Time of Disposition: 12:17 Disposition: Home, Self-Care 01 Condition: Fair Clinical Impression: Vision loss, right eye - Discharge Information *PRESCRIPTION DRUG MONITORING PROGRAM REVIEWED*: Not Applicable *COPY OF PRESCRIPTION DRUG MONITORING REPORT IN PATIENT EMY: Not Applicable Referrals: Kranthi Rowe MD [Primary Care Provider] - Forms: ED Department Discharge Additional Instructions: Evaluation in the emergency room at noon today in regards to sudden onset of peripheral vision loss at about 0915 hrs. this morning. Vision has not returned since that time and you can only see blurred vision in the central visual field. You have a history of glaucoma and used eyedrops to control this. Apparently glaucoma has been under very good control on last checkup. Your blood pressure is under good control at 123/78. Heart rate is sinus and regular. On my examination of your eye with ophthalmoscopy the arterial supply to the eye appears intact. I cannot see the veins very well suggesting central vein occlusion. Retinal scan done by ultrasound reveals no evidence of a retinal detachment. You are to attend Dr. My Calhoun's office as soon as you leave the emergency department. Please call into the office and they will invite you in when they have an opening which will be shortly. Sepsis Event Note - Evaluation Sepsis Screening Result: No Definite Risk - Focused Exam Vital Signs: Vital Signs Temp Pulse Resp BP Pulse Ox 08/09/19 11:58 35.8 C L 79 18 149/81 H 98 Date Exam was Performed: 08/09/19 Time Exam was Performed: 12:20
[2019-08-09 19:28] VITALS: BP 144/83; PULSE 81
== END 2019-08-09 12:47 | disposition home or self-care (01) ==
LOC: JD.ED 11:48
DX: H54.61 Unqualified visual loss, right eye, normal vision left eye (principal); K21.9 Gastro-esophageal reflux disease without esophagitis; I10 Essential (primary) hypertension; Z86.73 Personal history of transient ischemic attack (TIA), and cerebral infarction without residual deficits; Z88.8 Allergy status to other drugs, medicaments and biological substances; Z79.82 Long term (current) use of aspirin; Z79.899 Other long term (current) drug therapy
CPT/HCPCS: 99282; 99283